=== PATIENT | male | born 1990 | race Caucasian/White ===

== ENCOUNTER 2018-05-06 10:17 | Emergency (ER) | payer OTHER ==
[2018-05-06 10:48] VITALS: RESP 18; TEMP 98
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
--- NOTE | 2018-05-06 11:41 | XR ---
EXAMINATION TYPE: XR hand complete RT DATE OF EXAM: 05/06/2018 COMPARISON: NONE HISTORY: Pain TECHNIQUE: Three views are submitted. FINDINGS: The osseous structures are intact. The joint spaces are preserved and there is no acute fracture or dislocation. IMPRESSION: 1. No definite acute fracture or dislocation if symptoms persist, follow-up study in 7 to 10 days wo uld be suggested
[2018-05-06 12:07] VITALS: BP 130/75; PULSE 78
== END 2018-05-06 12:07 | disposition home or self-care (01) ==
LOC: EC 10:17
DX: S60.221A Contusion of right hand, initial encounter (principal); M25.441 Effusion, right hand; F17.200 Nicotine dependence, unspecified, uncomplicated; Z88.0 Allergy status to penicillin; W22.8XXA Striking against or struck by other objects, initial encounter
CPT/HCPCS: 99283

== ENCOUNTER 2019-07-28 10:56 | Emergency (ER) | payer OTHER ==
[2019-07-28 11:09] VITALS: RESP 18
[2019-07-28] MEDS ORDERED: IPRATROPIUM-ALBUTEROL 3 ML NEB INHALATION STA (11:31)
--- NOTE | 2019-07-28 11:48 | XR ---
EXAMINATION TYPE: XR chest 2V DATE OF EXAM: 07/28/2019 COMPARISON: None HISTORY: 28-year-old male with cough and shortness of breath TECHNIQUE: PA and lateral views FINDINGS: The cardiomediastinal silhouette, aorta, and pulmonary vasculature are within normal limits. Lungs an d pleural spaces are clear. IMPRESSION: No acute cardiopulmonary process.
--- NOTE | 2019-07-28 12:00 | ED ---
General Adult HPI - General Chief complaint: Upper Respiratory Infection Stated complaint: Sweating/ sob Time Seen by Provider: 07/28/19 11:12 Source: patient, RN notes reviewed, old records reviewed Mode of arrival: ambulatory Limitations: no limitations - History of Present Illness Initial comments: 28-year-old male patient passed no history of asthma and GERD presents to ED with chief complaint of approximately 1 week of nonproductive cough, subjective fevers and chills. Patient reports that he has broken up with chills and night sweats. Patient reports that he has been experiencing a productive cough. Patient also reports that he feels as if he is experiencing an exacerbation of his GERD, epigastric, substernal burning. Patient was that while coughing he feels mildly shortness of breath. Patient denies any other complaints at this time. Systemic: Pt denies fatigue, fever/chills, rash. Pt denies weakness, night sweats, weight loss. Neuro: Pt denies headache, visual disturbances, syncope or pre-syncope. HEENT: Pt denies ocular discharge or irritation, otalgia, rhinorrhea, pharyngitis or notable lymphadenopathy. Cardiopulmonary: Pt denies chest pain, SOB, heart palpitations, dyspnea on exertion. Abdominal/GI: Pt denies abdominal pain, n/v/d. : Pt denies dysuria, burning w/ urination, frequency/urgency. Denies new onset urinary or bowel incontinence. MSK: Pt denies myalgia, loss of strength or function in extremities. Neuro: Pt denies new onset weakness, paresthesias. - Related Data Home Medications Medication Instructions Recorded Confirmed Levothyroxine Sodium [Synthroid] 100 mcg PO DAILY 07/28/19 07/28/19 Previous Rx's Medication Instructions Recorded EPINEPHrine (Auto Inject) [Epipen] 0.3 mg IM ONCE PRN #1 syringe 08/05/15 Albuterol Inhaler [Ventolin Hfa 1 - 2 puff INHALATION Q4-6H PRN #1 07/28/19 Inhaler] inhaler Pantoprazole Sodium [Protonix] 20 mg PO Q24HR 7 Days #7 tablet. 07/28/19 predniSONE 50 mg PO DAILY #4 tab 07/28/19 Allergies Allergy/AdvReac Type Severity Reaction Status Date / Time Penicillins Allergy Unknown Verified 07/28/19 11:15 Review of Systems ROS Statement: Those systems with pertinent positive or pertinent negative responses have been documented in the HPI. ROS Other: All systems not noted in ROS Statement are negative. Past Medical History Past Medical History: No Reported History History of Any Multi-Drug Resistant Organisms: None Reported Past Surgical History: No Surgical Hx Reported Past Psychological History: Bipolar, Depression Smoking Status: Current every day smoker Past Alcohol Use History: None Reported Past Drug Use History: None Reported General Exam - General Exam Comments Initial Comments: Constitutional: NAD, AOX3, Pt has pleasant affect. HEENT: NC/AT, trachea midline, neck supple, no lymphadenopathy. Posterior pharynx non erythematous, without exudates. External ears appear normal, without discharge. Mucous membranes moist. Eyes PERRLA, EOM intact. There is no scleral icterus. No pallor noted. Cardiopulmonary: RRR, no murmurs, rubs or gallops, no JVD noted. Lungs CTAB in anterior and posterior real. No peripheral edema. Abdominal exam: Abdomen soft and non-distended. Abdomen non-tender to palpation in all 4 quadrants. Bowel sounds active in LLQ. No hepatosplenomegaly. No ecchymosis Neuro: CN II-XII grossly intact. No nuchal rigidity. No raccon eyes, no rich sign, no hemotympanum. No cervical spinal tenderness. MSK: No posterior calf tenderness bilaterally, homans sign negative bilaterally. Posterior tibialis and radial pulse +2 bilaterally. Sensation intact in upper and lower extremities. Full active ROM in upper and lower extremities, 5/5 stregnth. Limitations: no limitations Course Vital Signs 07/28/19 07/28/19 07/28/19 11:07 11:28 12:07 Temperature 98.1 F Pulse Rate 87 61 Respiratory 18 18 Rate Blood Pressure 107/73 O2 Sat by Pulse 99 Oximetry 07/28/19 12:15 Temperature Pulse Rate 74 Respiratory Rate Blood Pressure O2 Sat by Pulse Oximetry Medical Decision Making - Medical Decision Making 28-year-old male patient passed no history of asthma and GERD presents to ED with chief complaint of approximately 1 week of nonproductive cough, subjective fevers and chills. Patient reports that he has broken up with chills and night sweats. Patient reports that he has been experiencing a productive cough. Patient also reports that he feels as if he is experiencing an exacerbation of his GERD, epigastric, substernal burning. Patient was that while coughing he feels mildly shortness of breath. Patient denies any other complaints at this time. Patient vital signs stable, afebrile. Physical exam did not display acute pathology. Chest x-ray revealed no acute cardiopulmonary processes. EKG not concerning for acute ischemia. Patient feeling much improved after breathing treatment. Patient likely experiencing viral bronchitis-like syndrome. Patient discharged breathing treatments, steroids, patient will also be initiated on Protonix for GERD. Patient follow with Dr. Garcia, return to ER if condition worsens. Pt is PERC negative. Case discussed with Dr. Mccoy. - EKG Data -: EKG Interpreted by Me (and Dr. Mccoy ) EKG Comments: Ventricular rate 65, VA interval 144, QRS 92, QT/QTc 410/426. Sinus rhythm with his arrhythmia with occasional PVC. Otherwise normal EKG, no concern for acute ischemia. Disposition Clinical Impression: Acute bronchitis, GERD (gastroesophageal reflux disease) Disposition: HOME SELF-CARE Condition: Stable Instructions (If sedation given, give patient instructions): Acute Bronchitis (ED), Gastroesophageal Reflux Disease (ED) Additional Instructions: Patient to adhere to previously discussed treatment plan and will take medication(s) as directed. Patient to follow up with PCP in 1-2 days. Patient to return to ED if symptoms do not improve. Take medication as prescribed. Follow up with primary care provider tomorrow, return to ER condition worsens. Prescriptions: predniSONE 50 mg PO DAILY #4 tab Pantoprazole Sodium [Protonix] 20 mg PO Q24HR 7 Days #7 tablet. Albuterol Inhaler [Ventolin Hfa Inhaler] 1 - 2 puff INHALATION Q4-6H PRN #1 inhaler PRN Reason: Cough Is patient prescribed a controlled substance at d/c from ED?: No Referrals: Елена Avila MD [Primary Care Provider] - 1-2 days
[2019-07-28 12:52] VITALS: BP 124/80; PULSE 88; TEMP 98.2
== END 2019-07-28 12:52 | disposition home or self-care (01) ==
LOC: EC 10:56
DX: J20.9 Acute bronchitis, unspecified (principal); K21.9 Gastro-esophageal reflux disease without esophagitis; F17.200 Nicotine dependence, unspecified, uncomplicated; Z79.890 Hormone replacement therapy; Z88.0 Allergy status to penicillin
CPT/HCPCS: 71046; 93005; 94640; 99285

== ENCOUNTER 2019-08-25 10:06 | Emergency (ER) | payer OTHER ==
--- NOTE | 2019-08-25 10:32 | ED ---
Recheck HPI - General Chief Complaint: Recheck/Abnormal Lab/Rx Stated Complaint: acid reflux/blood Time Seen by Provider: 08/25/19 10:19 Source: patient Mode of arrival: ambulatory Limitations: no limitations - History of Present Illness Initial Comments: 28-year-old male presents emergency department for chief complaint of persistent indigestion. Patient states that he is diagnosed with gastric reflux however was unable to afford the medications and has had burning sensation in the upper epigastric region especially when eating spicy foods. Patient states that he can no longer take the discomfort has been worsening for the past 4 days. Patient denies any chest pressure jaw pain and arm pain palpitations nausea patient denies any diabetes or high blood pressure or premature coronary artery disease with an family. Patient states that he just wants the medication so he can feel better. Patient states he did have some reflux with a small amount of blood in it. Patient denies hemoptysis he states it was when he had indigestion and reflux of bile. Patient denies any diarrhea lower abdominal pain melena hematochezia. Patient denies any dizziness lightheadedness or any other complaints. Remaining review of system negative. Upon arrival patient appears well no signs of acute distress. Patient hemodynamically stable. - Related Data Previous Rx's Medication Instructions Recorded Omeprazole 40 mg PO DAILY 7 Days #7 capsule. 08/25/19 Allergies Allergy/AdvReac Type Severity Reaction Status Date / Time Penicillins Allergy Unknown Verified 08/25/19 10:34 Review of Systems ROS Statement: Those systems with pertinent positive or pertinent negative responses have been documented in the HPI. ROS Other: All systems not noted in ROS Statement are negative. Past Medical History Past Medical History: No Reported History History of Any Multi-Drug Resistant Organisms: None Reported Past Surgical History: No Surgical Hx Reported Past Psychological History: Bipolar, Depression Smoking Status: Current some day smoker Past Alcohol Use History: None Reported Past Drug Use History: None Reported General Exam - General Exam Comments Initial Comments: General: The patient is awake and alert, in no distress, and does not appear acutely ill. Eye: Pupils are equal, round and reactive to light, extra-ocular movements are intact. No nystagmus. There is normal conjunctiva bilaterally. No signs of icterus. Ears, nose, mouth and throat: There are moist mucous membranes and no oral lesions. Neck: The neck is supple, there is no tenderness or JVD. Cardiovascular: There is a regular rate and rhythm. No murmur, rub or gallop is appreciated. Respiratory: Lungs are clear to auscultation, respirations are non-labored, breath sounds are equal. No wheezes, stridor, rales, or rhonchi. Gastrointestinal: Soft, non-distended, mild tenderness to palpation of the epigastric region of abdomen abdomen without masses or organomegaly noted. There is no rebound or guarding present. No CVA tenderness. Bowel sounds are unremarkable. Musculoskeletal: Normal ROM, no tenderness. Strength 5/5. Sensation intact. Pulses equal bilaterally 2+. Neurological: A&O x 3. CN II-XII intact, There are no obvious motor or sensory deficits. Coordination appears grossly intact. Speech is normal. Skin: Skin is warm and dry and no rashes or lesions are noted. Psychiatric: Cooperative, appropriate mood & affect, normal judgment. Limitations: no limitations Course Vital Signs 08/25/19 08/25/19 08/25/19 10:13 12:44 13:24 Temperature 97.5 F L 97.9 F Pulse Rate 69 62 Respiratory 18 20 Rate Blood Pressure 109/72 100/67 O2 Sat by Pulse 100 99 Oximetry Medical Decision Making - Medical Decision Making 28-year-old male presenting for indigestion. Patient is low risk as far as cardiac risk factors. EKG no acute findings. Troponin negative. Symptoms ongoing for greater than 4 days. Patient was given GI cocktail Protonix. Upon reevaluation he states symptoms are almost resolved. Given patient had some blood in his reflux concerned for possible peptic ulcer. Discusses concerned patient recommend he follow up primary care provider if symptoms persist follow- up with gastroenterology. Patient's right prescription for omeprazole case discussed with attending provider and patient was discharged appearing well - Lab Data Result diagrams: 08/25/19 10:52 08/25/19 10:52 Lab Results 08/25/19 08/25/19 08/25/19 Range/Units 10:52 10:52 10:52 WBC 8.0 (3.8-10.6) k/uL RBC 5.05 (4.30-5.90) m/uL Hgb 16.1 (13.0-17.5) gm/dL Hct 47.6 (39.0-53.0) % MCV 94.4 (80.0-100.0) fL MCH 31.9 (25.0-35.0) pg MCHC 33.8 (31.0-37.0) g/dL RDW 12.8 (11.5-15.5) % Plt Count 263 (150-450) k/uL Neutrophils % 61 % Lymphocytes % 27 % Monocytes % 5 % Eosinophils % 3 % Basophils % 2 % Neutrophils # 4.8 (1.3-7.7) k/uL Lymphocytes # 2.2 (1.0-4.8) k/uL Monocytes # 0.4 (0-1.0) k/uL Eosinophils # 0.2 (0-0.7) k/uL Basophils # 0.2 (0-0.2) k/uL PT (9.0-12.0) sec INR (<1.2) APTT (22.0-30.0) sec Sodium 138 (137-145) mmol/L Potassium 4.2 (3.5-5.1) mmol/L Chloride 108 H (98-107) mmol/L Carbon Dioxide 23 (22-30) mmol/L Anion Gap 7 mmol/L BUN 8 L (9-20) mg/dL Creatinine 0.86 (0.66-1.25) mg/dL Est GFR (CKD-EPI)AfAm >90 (>60 ml/min/1.73 sqM) Est GFR (CKD-EPI)NonAf >90 (>60 ml/min/1.73 sqM) Glucose 108 H (74-99) mg/dL Calcium 9.4 (8.4-10.2) mg/dL Total Bilirubin 0.4 (0.2-1.3) mg/dL AST 28 (17-59) U/L ALT 22 (21-72) U/L Alkaline Phosphatase 71 (38-126) U/L Troponin I <0.012 (0.000-0.034) ng/mL Total Protein 6.7 (6.3-8.2) g/dL Albumin 4.2 (3.5-5.0) g/dL Lipase (23-300) U/L 08/25/19 08/25/19 Range/Units 10:52 10:52 WBC (3.8-10.6) k/uL RBC (4.30-5.90) m/uL Hgb (13.0-17.5) gm/dL Hct (39.0-53.0) % MCV (80.0-100.0) fL MCH (25.0-35.0) pg MCHC (31.0-37.0) g/dL RDW (11.5-15.5) % Plt Count (150-450) k/uL Neutrophils % % Lymphocytes % % Monocytes % % Eosinophils % % Basophils % % Neutrophils # (1.3-7.7) k/uL Lymphocytes # (1.0-4.8) k/uL Monocytes # (0-1.0) k/uL Eosinophils # (0-0.7) k/uL Basophils # (0-0.2) k/uL PT 9.6 (9.0-12.0) sec INR 0.9 (<1.2) APTT 26.6 (22.0-30.0) sec Sodium (137-145) mmol/L Potassium (3.5-5.1) mmol/L Chloride (98-107) mmol/L Carbon Dioxide (22-30) mmol/L Anion Gap mmol/L BUN (9-20) mg/dL Creatinine (0.66-1.25) mg/dL Est GFR (CKD-EPI)AfAm (>60 ml/min/1.73 sqM) Est GFR (CKD-EPI)NonAf (>60 ml/min/1.73 sqM) Glucose (74-99) mg/dL Calcium (8.4-10.2) mg/dL Total Bilirubin (0.2-1.3) mg/dL AST (17-59) U/L ALT (21-72) U/L Alkaline Phosphatase (38-126) U/L Troponin I (0.000-0.034) ng/mL Total Protein (6.3-8.2) g/dL Albumin (3.5-5.0) g/dL Lipase 35 (23-300) U/L - EKG Data EKG Comments: Ventricular rate 50 bpm, VT interval 146 ms, QRS ration 92 ms, QT/QTc 412/44 ms sinus bradycardia with marked sinus arrhythmia occasional PVCs otherwise normal EKG no ST elevation or depression of findings consistent with acute coronary syndrome. EKG personally interpreted and reviewed by myself and the provider Disposition Clinical Impression: Indigestion Disposition: HOME SELF-CARE Condition: Good Instructions (If sedation given, give patient instructions): Peptic Ulcer (ED) Additional Instructions: Please use medication as discussed. Please follow-up with family doctor in the next 2 days. Please return to emergency room if the symptoms increase or worsen or for any other concerns. Prescriptions: Omeprazole 40 mg PO DAILY 7 Days #7 capsule.dr Is patient prescribed a controlled substance at d/c from ED?: No Referrals: Елена Avila MD [Primary Care Provider] - 1-2 days Time of Disposition: 13:16
[2019-08-25] MEDS ORDERED: PANTOPRAZOLE 40 MG/10 ML VIAL IVP STA (10:56)
[2019-08-25 11:02] LABS: Basophils # (A) 0.2 k/uL (0-0.2); Basophils % (A) 2 %; Eosinophils # (A) 0.2 k/uL (0-0.7); Eosinophils % (A) 3 %; HCT 47.6 % (39.0-53.0); HGB 16.1 gm/dL (13.0-17.5); Lymphocytes # (A) 2.2 k/uL (1.0-4.8); Lymphocytes % (A) 27 %; MCH 31.9 pg (25.0-35.0); MCHC 33.8 g/dL (31.0-37.0); MCV 94.4 fL (80.0-100.0); Mean Platelet Volume 6.4; Monocytes # (A) 0.4 k/uL (0-1.0); Monocytes % (A) 5 %; Neutrophils # (A) 4.8 k/uL (1.3-7.7); Neutrophils % (A) 61 %; Platelet Count 263 k/uL (150-450); RBC 5.05 m/uL (4.30-5.90); RDW 12.8 % (11.5-15.5)
[2019-08-25 11:14] LABS: ALT 22 U/L (21-72); AST 28 U/L (17-59); African American GFR (CKD) >90 (>60 ml/min/1.73 sqM); Albumin 4.2 g/dL (3.5-5.0); Alkaline Phosphatase 71 U/L (38-126); Anion Gap 7 mmol/L; Blood Urea Nitrogen 8 mg/dL (9-20); Calcium 9.4 mg/dL (8.4-10.2); Carbon Dioxide 23 mmol/L (22-30); Chloride 108 mmol/L (98-107); Glucose 108 mg/dL (74-99); Potassium 4.2 mmol/L (3.5-5.1); Sodium 138 mmol/L (137-145); Total Bilirubin 0.4 mg/dL (0.2-1.3); Total Protein 6.7 g/dL (6.3-8.2)
--- NOTE | 2019-08-25 11:22 | XR ---
EXAMINATION TYPE: XR abdomen acute w cxr DATE OF EXAM: 08/25/2019 COMPARISON: 07/28/2019 HISTORY: Pain TECHNIQUE: Supine, upright, and left side down lateral decubitus views of the abdomen are obtained. FINDINGS: Bowel gas pattern is nonspecific. Lungs are clear. No pleural effusion or pneumothorax seen structures intact. Sclerotic density overlying the left iliac bone likely related to bone IMPRESSION: Unremarkable study
[2019-08-25] MEDS ORDERED: MAG HYDROX/AL HYDROX/SIMETH 30 ML, HYOSCYAMINE ELIXIR 10 ML, LIDOCAINE VISCOUS 2% 10 ML PO ONE ×3 (11:55)
[2019-08-25 12:44] LABS: INR 0.9 (<1.2); Partial Thromboplastin Time 26.6 sec (22.0-30.0); Prothrombin Time 9.6 sec (9.0-12.0)
[2019-08-25 12:46] VITALS: BP 100/67; PULSE 62; RESP 20
[2019-08-25 13:25] VITALS: TEMP 97.9
== END 2019-08-25 13:25 | disposition home or self-care (01) ==
LOC: EC 10:06
DX: K30 Functional dyspepsia (principal); F17.200 Nicotine dependence, unspecified, uncomplicated; Z88.0 Allergy status to penicillin; Z87.19 Personal history of other diseases of the digestive system
CPT/HCPCS: 36415; 93005; 80053; 83690; 84484; 85025; 85610; 85730; 74022; 99284; 96374; C9113

== ENCOUNTER 2019-11-17 23:18 | Emergency (ER) | payer OTHER ==
[2019-11-17 23:23] VITALS: TEMP 98
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
[2019-11-17 23:53] VITALS: BP 123/82; PULSE 91; RESP 18
== END 2019-11-18 00:24 | disposition home or self-care (01) ==
LOC: EC 23:18
DX: F41.9 Anxiety disorder, unspecified (principal); Z59.0 Homelessness; Z88.0 Allergy status to penicillin; Z91.030 Bee allergy status
CPT/HCPCS: 99283

== ENCOUNTER 2021-03-01 11:05 | Emergency (ER) | payer OTHER ==
[2021-03-01 11:55] VITALS: BP 110/74; PULSE 64; RESP 18; TEMP 97.5
--- NOTE | 2021-03-01 11:55 | ED ---
General Adult HPI - General Stated complaint: Fever Time Seen by Provider: 03/01/21 11:53 Source: patient, RN notes reviewed Mode of arrival: ambulatory Limitations: no limitations - History of Present Illness Initial comments: This a 30-year-old male presents emergency Department with chief complaint of fever chills cough. Patient states started last couple nights states it is very fatigued but cannot sleep. He states he has some mild abdominal GI upset. No significant past medical history. Patient denies any known sick contacts. No loss of taste or smell - Related Data Previous Rx's Medication Instructions Recorded Omeprazole 40 mg PO DAILY 7 Days #7 capsule. 08/25/19 Allergies Allergy/AdvReac Type Severity Reaction Status Date / Time bee venom protein (honey bee) Allergy Swelling Verified 03/01/21 11:55 Penicillins Allergy Unknown Verified 03/01/21 11:55 Review of Systems ROS Statement: Those systems with pertinent positive or pertinent negative responses have been documented in the HPI. ROS Other: All systems not noted in ROS Statement are negative. Past Medical History Past Medical History: No Reported History History of Any Multi-Drug Resistant Organisms: None Reported Past Surgical History: No Surgical Hx Reported Past Psychological History: Anxiety, Bipolar, Depression Past Alcohol Use History: None Reported Past Drug Use History: None Reported Course Vital Signs 03/01/21 11:53 Temperature 97.5 F L Pulse Rate 64 Respiratory 18 Rate Blood Pressure 110/74 O2 Sat by Pulse 99 Oximetry Medical Decision Making - Medical Decision Making Patient is negative for Covid. Patient is a viral URI. Patient discharged in stable condition. - Lab Data Lab Results 03/01/21 Range/Units 11:57 Coronavirus (PCR) Not Detected (Not Detectd) Disposition Clinical Impression: Upper respiratory tract infection Disposition: HOME SELF-CARE Additional Instructions: Please return to the Emergency Department if symptoms worsen or any other concerns. Is patient prescribed a controlled substance at d/c from ED?: No Referrals: None,Stated [Primary Care Provider] - 1-2 days Time of Disposition: 13:42
== END 2021-03-01 13:44 | disposition home or self-care (01) ==
LOC: EC 11:05
DX: J06.9 Acute upper respiratory infection, unspecified (principal); B97.89 Other viral agents as the cause of diseases classified elsewhere; K30 Functional dyspepsia; R43.8 Other disturbances of smell and taste; F41.9 Anxiety disorder, unspecified; F32.9 Major depressive disorder, single episode, unspecified; Z88.0 Allergy status to penicillin; Z20.822 Contact with and (suspected) exposure to COVID-19
CPT/HCPCS: 87635; 99283

== ENCOUNTER 2023-10-16 13:46 | Emergency (ER) | payer OTHER ==
[2023-10-16 14:11] VITALS: RESP 16
--- NOTE | 2023-10-16 14:12 | XR ---
EXAMINATION TYPE: XR shoulder complete RT DATE OF EXAM: 10/16/2023 CLINICAL HISTORY: pain TECHNIQUE: Three views of the right shoulder are obtained. COMPARISON: None FINDINGS: There is no acute fracture/dislocation evident. The acromioclavicular and glenohumeral scar int spaces appear within normal limits. The visualized ribs are intact and unremarkable. IMPRESSION: 1. There is no acute fracture or dislocation. ICD 10 NO FRACTURE, INITIAL EVALUATION
--- NOTE | 2023-10-16 15:20 | ED ---
Upper Extremity HPI - General Chief Complaint: Extremity Injury, Upper Stated Complaint: RIGHT SHOULDER PAIN Time Seen by Provider: 10/16/23 14:49 Source: patient, RN notes reviewed Mode of arrival: ambulatory Limitations: no limitations - History of Present Illness Initial Comments: 33-year-old male presents emergency Department chief complaint right shoulder pain. Patient states fell a few years ago states he never was ago evaluated for it. But states that now he has pain by his clavicle, shoulder region. Patient also has pain he rates on his right arm denies any chest pain or shortness of breath. He is [id number] states that he uses arm quite a bit for work. - Related Data Previous Rx's Medication Instructions Recorded Omeprazole 40 mg PO DAILY 7 Days #7 capsule. 08/25/19 Cyclobenzaprine [Flexeril] 10 mg PO TID PRN #15 tab 10/16/23 Ibuprofen [Motrin] 600 mg PO Q8HR PRN #20 tab 10/16/23 predniSONE 50 mg PO DAILY #5 tab 10/16/23 Allergies Allergy/AdvReac Type Severity Reaction Status Date / Time bee venom protein (honey bee) Allergy Swelling Verified 10/16/23 13:55 Penicillins Allergy Unknown Verified 10/16/23 13:55 Review of Systems ROS Statement: Those systems with pertinent positive or pertinent negative responses have been documented in the HPI. ROS Other: All systems not noted in ROS Statement are negative. Past Medical History Past Medical History: No Reported History History of Any Multi-Drug Resistant Organisms: None Reported Past Surgical History: No Surgical Hx Reported Past Psychological History: Anxiety, Bipolar, Depression Smoking Status: Vaper Past Alcohol Use History: None Reported Past Drug Use History: Marijuana General Exam Limitations: no limitations General appearance: alert, in no apparent distress Head exam: Present: atraumatic, normocephalic, normal inspection Neck exam: Present: normal inspection, tenderness, full ROM. Absent: meningismus, lymphadenopathy Respiratory exam: Present: normal lung sounds bilaterally. Absent: respiratory distress, wheezes, rales, rhonchi, stridor Cardiovascular Exam: Present: regular rate, normal rhythm, normal heart sounds. Absent: systolic murmur, diastolic murmur, rubs, gallop, clicks Extremities exam: Present: other (Mild AC joint tenderness, full range of motion neurovascular intact) Neurological exam: Present: alert, oriented X3, reflexes normal. Absent: motor sensory deficit Skin exam: Present: warm, dry, intact, normal color. Absent: rash Course Vital Signs 10/16/23 10/16/23 13:53 16:01 Temperature 97.9 F 98 F Pulse Rate 96 90 Respiratory 16 16 Rate Blood Pressure 115/80 112/84 O2 Sat by Pulse 96 97 Oximetry Medical Decision Making - Medical Decision Making Was pt. sent in by a medical professional or institution (MIRLANDE Lopez, DIRECTOR OF DISTRICT OFFICE, urgent care, hospital, or longterm...) When possible be specific @ -No Did you speak to anyone other than the patient for history (EMS, parent, family, police, friend...)? What history was obtained from this source @ -No Did you review nursing and triage notes (agree or disagree)? Why? @ -I reviewed and agree with nursing and triage notes Were old charts reviewed (outside hosp., previous admission, EMS record, old EKG, old radiological studies, urgent care reports/EKG's, longterm records)? Report findings @ -No old charts were reviewed Differential Diagnosis (chest pain, altered mental status, abdominal pain women, abdominal pain men, vaginal bleeding, weakness, fever, dyspnea, syncope, headache, dizziness, GI bleed, back pain, seizure, CVA, palpatations, mental health, musculoskeletal)? @ -Shoulder strain, shoulder sprain, cervical radiculopathy, acromioclavicular injury EKG interpreted by me (3pts min.). @ -None X-rays interpreted by me (1pt min.). @ -X-ray right shoulder showing no acute osseous lesion or abnormality. CT interpreted by me (1pt min.). @ -None done U/S interpreted by me (1pt. min.). @ -None done What testing was considered but not performed or refused? (CT, X-rays, U/S, labs)? Why? @ -None What meds were considered but not given or refused? Why? @ -None Did you discuss the management of the patient with other professionals (professionals i.e. MIRLANDE Lopez, DIRECTOR OF DISTRICT OFFICE, lab, RT, psych nurse, home health care social worker, shear operator helper, teacher, property disposal officer, correctional case manager)? Give summary @ -No Was smoking cessation discussed for >3mins.? @ -No Was critical care preformed (if so, how long)? @ -No Were there social determinants of health that impacted care today? How? (Homelessness, low income, unemployed, alcoholism, drug addiction, transportation, low edu. Level, literacy, decrease access to med. care, longterm, rehab)? @ -No Was there de-escalation of care discussed even if they declined (Discuss DNR or withdrawal of care, Hospice)? DNR status @ -No What co-morbidities impacted this encounter? (DM, HTN, Smoking, COPD, CAD, Cancer, CVA, ARF, Chemo, Hep., AIDS, mental health diagnosis, sleep apnea, morbid obesity)? @ -None Was patient admitted / discharged? Hospital course, mention meds given and route, prescriptions, significant lab abnormalities, going to OR and other pertinent info. @ -Discharge patient has cervical radiculopathy, acromioclavicular tendinitis versus arthritic changes. Patient is discharged in stable condition with follow-up with orthopedics. Undiagnosed new problem with uncertain prognosis? @ -No Drug Therapy requiring intensive monitoring for toxicity (Heparin, Nitro, Insulin, Cardizem)? @ -No Were any procedures done? @ -No Diagnosis/symptom? @Shoulder pain right Acute, or Chronic, or Acute on Chronic? @ -Acute Uncomplicated (without systemic symptoms) or Complicated (systemic symptoms)? @ -Uncomplicated Side effects of treatment? @ -No Exacerbation, Progression, or Severe Exacerbation? @ -No Poses a threat to life or bodily function? How? (Chest pain, [place], [place], pneumonia, PE, COPD, DKA, ARF, appy, cholecystitis, CVA, Diverticulitis, Homicidal, Suicidal, threat to staff... and all critical care pts) @ -No Disposition Clinical Impression: Arthralgia of right acromioclavicular joint, Cervical radicular pain Disposition: HOME SELF-CARE Condition: Stable Additional Instructions: Please return to the Emergency Department if symptoms worsen or any other concerns. Prescriptions: Cyclobenzaprine [Flexeril] 10 mg PO TID PRN #15 tab PRN Reason: Muscle Spasm Ibuprofen [Motrin] 600 mg PO Q8HR PRN #20 tab PRN Reason: Pain predniSONE 50 mg PO DAILY #5 tab Is patient prescribed a controlled substance at d/c from ED?: No Referrals: Jj Mcmullen DO [Doctor of Osteopathic Medicine] - 1-2 days Time of Disposition: 15:20
[2023-10-16 16:06] VITALS: BP 112/84; PULSE 90; TEMP 98
== END 2023-10-16 16:02 | disposition home or self-care (01) ==
LOC: EC 13:46
DX: M25.511 Pain in right shoulder (principal); M54.12 Radiculopathy, cervical region; F17.290 Nicotine dependence, other tobacco product, uncomplicated; F12.90 Cannabis use, unspecified, uncomplicated; Z88.0 Allergy status to penicillin; Z91.030 Bee allergy status
CPT/HCPCS: 99283